=== PATIENT | male | born 1990 ===

== ENCOUNTER → 2017-08-08 | Emergency (ER) | payer OTHER ==
[~2017-08-08] VITALS: Ht 182.9 cm; Wt 108.9 kg
[~2017-08-08] MED LIST: LEVAQUIN750 MG PO
== END | disposition home or self-care (01) ==
LOC: ER 13:14
DX: S61.411A Laceration without foreign body of right hand, initial encounter (principal); W45.8XXA Other foreign body or object entering through skin, initial encounter; Y93.89 Activity, other specified; Y92.69 Other specified industrial and construction area as the place of occurrence of the external cause; Y99.8 Other external cause status